=== PATIENT | female | born 1935 | race Native Hawaiian/Other Pacific Islander ===

== ENCOUNTER 2016-08-29 15:32 | Outpatient (CLI) | payer OTHER, BC ==
[2016-08-29 16:12] LABS: PLATELET COUNT 217 K/uL (152-353)
[2016-08-29 16:28] LABS: POTASSIUM 4.7 mmol/L (3.6-5.2); SODIUM 142 mmol/L (136-145)
== END 2016-08-29 19:07 | disposition home or self-care (01) ==
LOC: LAB 15:32
PROVIDERS: Nurse Practitioner Family
DX: I10 Essential (primary) hypertension (principal); R13.19 Other dysphagia; K21.9 Gastro-esophageal reflux disease without esophagitis; E11.9 Type 2 diabetes mellitus without complications; R35.0 Frequency of micturition; K44.9 Diaphragmatic hernia without obstruction or gangrene; N32.81 Overactive bladder; E55.9 Vitamin D deficiency, unspecified
CPT/HCPCS: 80053; 80061; 82306; 82607; 83036; 84436; 84443; 85027

== ENCOUNTER 2016-12-14 12:49 | Outpatient (CLI) | payer OTHER, BC ==
[2016-12-14 13:23] LABS: PLATELET COUNT 233 K/uL (152-353)
[2016-12-14 13:39] LABS: POTASSIUM 3.9 mmol/L (3.6-5.2); SODIUM 143 mmol/L (136-145)
== END 2016-12-14 19:08 | disposition home or self-care (01) ==
LOC: LAB 12:49
PROVIDERS: Nurse Practitioner Family
DX: E11.9 Type 2 diabetes mellitus without complications (principal); K21.9 Gastro-esophageal reflux disease without esophagitis; I10 Essential (primary) hypertension; Z13.820 Encounter for screening for osteoporosis; N32.81 Overactive bladder
CPT/HCPCS: 80053; 80061; 83036; 84436; 84443; 85027

== ENCOUNTER 2017-01-07 11:29 | Outpatient (CLI) | payer OTHER, BC | END 2017-01-07 13:00 | disposition home or self-care (01) | LOC: MAMMO 11:29 | DX: Z12.31 Encounter for screening mammogram for malignant neoplasm of breast (principal); Z13.820 Encounter for screening for osteoporosis; M85.88 Other specified disorders of bone density and structure, other site ==

== ENCOUNTER 2017-06-27 14:04 | Outpatient (CLI) | payer OTHER, BC ==
[2017-06-27 14:31] LABS: PLATELET COUNT 254 K/uL (152-353)
[2017-06-27 14:57] LABS: POTASSIUM 4.7 mmol/L (3.6-5.2)
== END 2017-06-27 22:30 | disposition home or self-care (01) ==
LOC: LAB 14:04
PROVIDERS: Nurse Practitioner Family
DX: E11.9 Type 2 diabetes mellitus without complications (principal); K21.9 Gastro-esophageal reflux disease without esophagitis; R30.0 Dysuria; I10 Essential (primary) hypertension; N32.81 Overactive bladder; Z79.899 Other long term (current) drug therapy; Z51.81 Encounter for therapeutic drug level monitoring
CPT/HCPCS: 80053; 80061; 83036; 84436; 84443; 85027

== ENCOUNTER 2018-01-16 09:28 | Emergency (ER) | payer OTHER, BC ==
[~2018-01-16] VITALS: Ht 157.5 cm; Wt 210.9 kg
[2018-01-16 11:17] VITALS: BP 165/55; TEMP 97.3
== END 2018-01-16 11:19 | disposition home or self-care (01) ==
LOC: ED 09:28
PROC: 2W3DX1Z Immobilization of Left Lower Arm using Splint (ICD-10-PCS; principal; 2018-01-16)
DX: S52.592A Other fractures of lower end of left radius, initial encounter for closed fracture (principal); W01.0XXA Fall on same level from slipping, tripping and stumbling without subsequent striking against object, initial encounter; Y92.89 Other specified places as the place of occurrence of the external cause
CPT/HCPCS: 36415; 99283; L3908

== ENCOUNTER 2018-08-20 15:12 | Outpatient (CLI) | payer OTHER, MEDICARE | END 2018-08-20 23:30 | disposition home or self-care (01) | LOC: US 15:12 | DX: M79.89 Other specified soft tissue disorders (principal); M79.605 Pain in left leg ==

== ENCOUNTER → 2018-09-14 | Emergency (ER) | payer OTHER, MEDICARE ==
[~2018-09-14] VITALS: Ht 157.5 cm; Wt 74.8 kg
[2018-09-14 08:57] VITALS: BP 190/86; TEMP 98.1
[2018-09-14 09:36] LABS: PLATELET COUNT 269 K/uL (152-353)
[2018-09-14 09:42] LABS: POTASSIUM 4.3 mmol/L (3.6-5.2)
== END ==
LOC: ED 08:24
PROVIDERS: Family Medicine
DX: K59.09 Other constipation (principal)
CPT/HCPCS: 80053; 81000; 85027; 99283

== ENCOUNTER 2020-05-25 10:09 | Outpatient (CLI) | payer OTHER, MEDICARE | END 2020-05-25 22:42 | disposition home or self-care (01) | LOC: RAD 10:09 | PROVIDERS: ATTEND Nurse Practitioner Family | DX: M79.661 Pain in right lower leg (principal); M79.662 Pain in left lower leg; R22.43 Localized swelling, mass and lump, lower limb, bilateral ==

== ENCOUNTER 2020-07-20 10:58 | Outpatient (CLI) | payer OTHER, MEDICARE | END 2020-07-20 20:20 | disposition home or self-care (01) | LOC: MAMMO 10:58 | PROVIDERS: ATTEND Nurse Practitioner Family | DX: Z12.31 Encounter for screening mammogram for malignant neoplasm of breast (principal) ==

== ENCOUNTER 2020-09-14 11:51 | Outpatient (CLI) | payer OTHER, MEDICARE | END 2020-09-14 19:47 | disposition home or self-care (01) | LOC: RAD 11:51 | PROVIDERS: ATTEND Nurse Practitioner Family | DX: R05 Cough (principal) ==

== ENCOUNTER 2021-07-25 13:01 | Outpatient (CLI) | payer OTHER, MEDICARE | END 2021-07-25 19:31 | disposition home or self-care (01) | LOC: MAMMO 13:01 | PROVIDERS: ATTEND Nurse Practitioner Family | DX: Z12.31 Encounter for screening mammogram for malignant neoplasm of breast (principal) ==